=== PATIENT | female | born 2000 | race Caucasian/White ===

== ENCOUNTER 2023-12-09 21:25 | Emergency (ER) | payer BC, OTHER, SELFPAY ==
[2023-12-09 21:35] VITALS: BP 153/107; BMI 19.0
--- NOTE | 2023-12-09 23:06 | ED.GENMED ---
History of Present Illness
General
Chief Complaint: Skin Surface Trauma
Source: patient
Time Seen by Provider: 12/09/23 22:38
Travel History
Have you had any contact with someone who has COVID-19?: No
Do you have any symptoms of coronavirus? Fever > 100 degrees, chills, cough, shortness of breath, sore throat, loss of taste or smell, muscle aches, or headache?: No
History of Present Illness
History of Present Illness:
23-year-old female with no significant past medical history presents emergency department for evaluation after accidentally cutting her left index finger while cutting up an avocado earlier this evening. Patient is right-hand dominant. No other
injuries were sustained. Tetanus vaccine is up-to-date.
Past History
Past History
ED Past Medical History: None
ED Past Surgical History: None
Social History
Tobacco: Non-smoker
Alcohol: Occasional
Drug: None
Personal: Single
Living: with roommate
Employment: Employed
Review of Systems
Review of Systems
All Other Systems: ROS reviewed and negative except as documented in HPI and ROS
Phy Exam
Physical Exam
Physical Exam:
GENERAL: Alert , in no apparent distress
EYE: conjunctiva clear
Head: Normocephalic atraumatic
NECK: Supple,
ENT: mmm.
LUNGS: no acute respiratory distress
NEUROLOGICAL: Alert and oriented
SKIN: Warm and dry, 1 cm linear horizontal laceration at the level of the proximal phalanx along the palmar surface of the left index finger. Bleeding controlled with continuous pressure. Patient is able to flex and extend digit without any
difficulty. Sensation grossly intact light touch
MUSCULOSKELETAL: well perfused. No visualized tendon laceration
PSYCH: Normal and appropriate interaction.
Scores
Heart Failure Risk
Heart Failure Risk Score: Not Applicable
Heart Score for Chest Pain Patients
STEMI patient?: Not applicable
Withdrawal Assessment of Alcohol
Withdrawal Assessment Completed?: Not applicable
Course
Vital Signs
Initial and Last Documented VS:
Initial Vital Signs
Temp Pulse Resp BP Pulse Ox
98 F 94 16 153/107 100
12/09/23 21:35 12/09/23 21:35 12/09/23 21:35 12/09/23 21:35 12/09/23 21:35
Last Documented Vital Signs
Temp Pulse Resp BP Pulse Ox
98 F 94 16 153/107 100
12/09/23 21:35 12/09/23 21:35 12/09/23 21:35 12/09/23 21:35 12/09/23 21:35
Procedures
Laceration Closure
Left Palmar Second Finger:
Status of Wound: clean
Size of Wound in cm: 1
Description of Wound Edges: sharp
Preparation: cleaned with saline
Anesthesia: Digital-Regional
Revision/Debridement: routine- no revision
Type of Closure: single layer closure
Skin Closure Material: 5-0 nylon
Number of sutures: 4
MDM/Problems Addressed
MDM/Problems Addressed:
Laceration repaired as above. Suture removal 10 to 12 days. Patient advised on wound care. Aware of return precautions. Otherwise stable for discharge home.
*Pulse Oximetry
Patient hypoxic: no
*Critical Care Note
Total Time (30-74mins, 75-104mins- exclusive of procedures): Not Applicable
ED Attending Note
-
Portions of this chart may have been created with voice recognition software.� Occasional wrong word or��sound alike� substitutions may have occurred due to the inherent limitations of voice recognition software.
Discharge Plan
Departure
Patient Disposition: Home (Routine Discharge)
Date of Disposition: 12/09/23
Time of Disposition: 23:06
Patient with high blood pressure during this ER visit?: Yes
Discharge Problem:
Laceration of left index finger
Instructions: Laceration Repair With Stitches (DC)
Prescriptions:
No Action
No Current Medications
0
Activity Restrictions/Additional Instructions:
Suture removal in 10 days
Interventions
Interventions:
*Risk Screen - Suicide Last Done: 12/09/23 21:35
*Neglect/Abuse Screening Last Done: 12/09/23 21:35
*ED COVID-19 Vaccine History Last Done: 12/09/23 21:35
[2023-12-09 23:38] VITALS: BP 105/73
[2023-12-09 23:39] VITALS: BP 105/73
== END 2023-12-09 23:40 | disposition home or self-care (01) ==
LOC: EMR 21:25
PROVIDERS: EMERGENCY PHYSICIAN Emergency Medicine; FAMILY PHYSICIAN Family Medicine
DX: S61.211A Laceration without foreign body of left index finger without damage to nail, initial encounter (principal); W26.0XXA Contact with knife, initial encounter
CPT/HCPCS: 99282; 12001